=== PATIENT | female | born 1990 | race Two or more races ===

== ENCOUNTER → 2025-03-27 | Outpatient (CLI) | payer SELFPAY | LOC: M WHC 08:04 | PROVIDERS: ATTEND Surgery | DX: N63.25 Unspecified lump in the left breast, overlapping quadrants (principal) | CPT/HCPCS: 76642; 77066; G0279 ==

== ENCOUNTER 2025-11-12 13:41 | Emergency (ER) | payer MEDICAID, OTHER, SELFPAY ==
[~2025-11-12] VITALS: Ht 160 cm; Wt 94.8 kg
[2025-11-12 14:12] LABS: BASO # 0.1 10^3/uL (0.0-0.2); BASO % 0.7 % (0.0-1.0); EOS # 0.3 10^3/uL (0.0-0.5); EOS % 4.1 % (0.0-3.0); LYMPH # 3.4 10^3/uL (1.5-5.0); LYMPH % 45.2 % (24.0-44.0); MONO # 0.5 10^3/uL (0.0-0.8); MONO % 6.0 % (2.0-8.0); NEUTROPHILS # 3.3 10^3/uL (1.5-8.5); NEUTROPHILS % 43.7 % (36.0-66.0); PLATELET COUNT, AUTOMATED 233 10^3/uL (150-450)
[2025-11-12 14:33] LABS: CK-MB VALUE MASS 1.0 NG/ML (<3.6)
[2025-11-12 14:36] LABS: CALCIUM LEVEL 8.8 MG/DL (8.5-10.1); CARBON DIOXIDE LEVEL 29 MMOL/L (20-31); CHLORIDE LEVEL 106 MMOL/L (98-107); CREATININE FOR GFR 0.83 MG/DL (0.55-1.30); GLOMERULAR FILTRATION RATE > 90.0 (>60); POTASSIUM SERUM 3.7 MMOL/L (3.5-5.1); SODIUM LEVEL 141 MMOL/L (136-145)
[2025-11-12 14:38] LABS: CPK CREATINE PHOSPHOKINASE 65 U/L (34-145); MB/CK RELATIVE INDEX 1.53 (< OR =4)
[2025-11-12] MEDS ORDERED: FEXO-111 PO (15:11)
[2025-11-12] MEDS ORDERED: HOME MED LIST COMPLETE! XX SCH (15:15)
[2025-11-12 15:30] VITALS: TEMP 97.6
[2025-11-12] MEDS: KETOROLAC 30 MG/ML 1 ML VIAL IV ONE (15:34)
[2025-11-12 15:37] LABS: CK-MB VALUE MASS < 1.0 NG/ML (<3.6)
[2025-11-12 15:38] LABS: CPK CREATINE PHOSPHOKINASE 56 U/L (34-145)
[2025-11-12 16:00] VITALS: BP 116/84; O2SAT 97
== END 2025-11-12 16:14 | disposition home or self-care (01) ==
LOC: M ED 13:41
DX: R07.82 Intercostal pain (principal); F41.9 Anxiety disorder, unspecified; F32.A Depression, unspecified; F12.10 Cannabis abuse, uncomplicated; Z79.899 Other long term (current) drug therapy
CPT/HCPCS: 71045; 80048; 82550; 82553; 84484; 85025; 85379; 93005; 93041; 94760; 96374; 99285; J1885